=== PATIENT | female | born 1970 | race Caucasian/White ===

== ENCOUNTER 2017-09-05 08:13 | Emergency (ER) | payer OTHER ==
[~2017-09-05] VITALS: Ht 165.1 cm; Wt 96.6 kg
--- NOTE | 2017-09-05 08:58 | Diagnostic Imaging Report ---
INDICATION: Right fifth finger injury. FINDINGS: 3 views of the right hand show posterior dislocation of the right fifth finger at the PIP joint. There is no appreciable fracture. IMPRESSION: Posterior dislocation of the right fifth finger at the PIP joint. Dictated by: Dictated on workstation # [id number]
[2017-09-05] MEDS ORDERED: LIDOCAINE 1% INJ 50 ML (XYLOCAINE) VIAL IJ ONE (09:15)
--- NOTE | 2017-09-05 09:33 | ED Upper Extremity ---
General Chief Complaint: Upper Extremity Stated Complaint: R PINKY POSS BROKEN Nursing Triage Note: c/o pain to right 5th finger and limited ROM. 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 Nursing Sepsis Screen: No Definite Risk Source: patient Exam Limitations: no limitations History of Present Illness Time seen by provider: 08:35 Initial Comments Here with report of right fifth finger pain and inability to bend the pinky finger at the IP joint. Apparently was carrying food trays at work and slipped or tripped and fell to the floor. She did hit her right knee and her right elbow as well as her right hand. The elbow are fine and she is walking without difficulty but noted that she was unable to bend her right fifth finger. Deformity noted. No abrasions or lacerations of significance. Onset: just prior to arrival (approximately one hour ago) Severity: moderate Pain/Injury Location: right 5th finger Method of Injury: fell Modifying Factors: Improves With Immobilization, Worse With Movement Allergies and Home Medications Allergies Coded Allergies: No Known Drug Allergies (Unverified , 09/05/17) Constitutional: no symptoms reported Respiratory: no symptoms reported Cardiovascular: no symptoms reported Musculoskeletal: joint pain, joint swelling Skin: no symptoms reported Psychiatric/Neurological: No Symptoms Reported Past Fwdiaph-Tqrxpo-Ketzaj Hx Patient Social History Alcohol Use: Denies Use Recreational Drug Use: No Smoking Status: Current Everyday Smoker Type Used: Cigarettes Recent Foreign Travel: No Contact w/Someone Who Travel: No Recent Infectious Disease Expo: No Surgeries History of Surgeries: Yes (uterine abletion) Surgeries: Section, Tubal Ligation Respiratory History of Respiratory Disorde: No Cardiovascular History of Cardiac Disorders: No Neurological History of Neurological Disord: No Genitourinary History of Genitourinary Disor: No Gastrointestinal History of Gastrointestinal Di: No Musculoskeletal History of Musculoskeletal Dis: No Endocrine History of Endocrine Disorders: No HEENT History of HEENT Disorders: No Cancer History of Cancer: No Psychosocial History of Psychiatric Problem: No Integumentary History of Skin or Integumenta: No Blood Transfusions History of Blood Disorders: No Reviewed Nursing Assessment Reviewed/Agree w Nursing PMH: Yes Family Medical History Significant Family History: No Pertinent Family Hx Physical Exam Vital Signs Vital Sign - Last 12Hours 09/05/17 08:28 Temp 97.5 Pulse 80 Resp 16 B/P (MAP) 146/98 (114) Capillary Refill : Less Than 3 Seconds General Appearance: WD/WN, no apparent distress Neck: full range of motion, supple Cardiovascular: regular rate, rhythm, no murmur Respiratory: lungs clear, normal breath sounds Hand: Right, deformity (right fifth finger IP joint obvious deformity with distal segment dorsally. Appears to be dislocation. Unable to bend at the IP joint. Distal sensation and circulation are intact.), limited ROM, stiffness, swelling Neurologic/Psychiatric: alert, oriented x 3 Skin: normal color, warm/dry Splinting and Joint Reduction : Pre-Proc Neuro Vasc Exam: normal Post-Proc Neuro Vasc Exam: normal Progress Right fifth finger IP joint Reduction Attempts: 1 post joint reduction film: joint reduced Progress Full range of motion after without return of dislocation. Splint placed by nursing. Tolerated procedure well with no complications. Procedure done after digital block with 1 percent lidocaine. Progress/Results/Core Measures Results/Orders My Orders Orders - JOHN BRIDGES MD Hand, Right, 3 Views (09/05/17 08:22) Lidocaine 1% (Xylocaine 1%) (09/05/17 09:15) Vital Signs/I&O Vital Sign - Last 12Hours 09/05/17 08:28 Temp 97.5 Pulse 80 Resp 16 B/P (MAP) 146/98 (114) Blood Pressure Mean: 114 Progress Note : Progress Note Seen and evaluated. X-ray right hand. Dislocation noted. Digital block of right finger with 1 percent lidocaine 4 mL total. Joint reduced without difficulty. Splint placed by nursing. Discharged home with return precautions. Patient verbalize understanding instructions and agreement with plan. Diagnostic Imaging Diagonstic Imaging: Xray Plain Films/CT/US/NM/MRI: hand Comments VIA [facility], [facility] [place], [place] NAME: MICHAEL GU [facility] REC#: [id number] PT STATUS: REG ER : 1970 PHYSICIAN: JOHN BRIDGES MD ADMIT DATE: 09/05/17/ER Draft Date of Exam:09/05/17 HAND, RIGHT, 3 VIEWS INDICATION: Right fifth finger injury. FINDINGS: 3 views of the right hand show posterior dislocation of the right fifth finger at the PIP joint. There is no appreciable fracture. IMPRESSION: Posterior dislocation of the right fifth finger at the PIP joint. Dictated on workstation # [id number] Dict: 09/05/17 0853 Trans: 09/05/17 0858 [id number] Interpreted by: JOHN HUYNH MD Electronically signed by: Departure Impression Impression: Primary Impression: Dislocation of finger, interphalangeal joint, right, closed Qualified Codes: S63.279A - Dislocation of unspecified interphalangeal joint of unspecified finger, initial encounter Disposition: HOME, SELF-CARE Condition: Improved Departure-Patient Inst. Decision time for Depature: 09:44 Referrals: NO,LOCAL PHYSICIAN (PCP/Family) Primary Care Physician Patient Instructions: Finger Dislocation (DC) Add. Discharge Instructions: All discharge instructions reviewed with patient and/or family. Voiced understanding. Use splint for the next one to 2 weeks and then as needed. Follow-up with occupational health today for recheck and further evaluation. Follow-up with orthopedist for recheck and further evaluation. Return for worse pain, swelling , weakness, breathing problems or other concerns as needed. You may use ibuprofen and/or Tylenol as needed. Pain. Use ice packs to affected area 20 minutes per hour as needed JOHN BRIDGES MD Sep 05, 2017 09:33
[2017-09-05 09:53] VITALS: BP 140/92
== END 2017-09-05 09:53 | disposition home or self-care (01) ==
LOC: EDUNIT# 08:13 → ER 08:16
DX: S63.286A Dislocation of proximal interphalangeal joint of right little finger, initial encounter (principal); F17.210 Nicotine dependence, cigarettes, uncomplicated; Z98.51 Tubal ligation status; Z87.59 Personal history of other complications of pregnancy, childbirth and the puerperium; W01.198A Fall on same level from slipping, tripping and stumbling with subsequent striking against other object, initial encounter
CPT/HCPCS: 29130; 64450; 73130

== ENCOUNTER 2017-09-12 15:10 | Outpatient (RCR) | payer OTHER | END 2017-09-12 17:08 | disposition home or self-care (01) | PROVIDERS: ATTEND Nurse Practitioner Family | DX: S63.286D Dislocation of proximal interphalangeal joint of right little finger, subsequent encounter (principal); W01.198D Fall on same level from slipping, tripping and stumbling with subsequent striking against other object, subsequent encounter; Y92.149 Unspecified place in prison as the place of occurrence of the external cause; Y99.0 Civilian activity done for income or pay ==

== ENCOUNTER → 2017-09-12 | Outpatient (REF) ==
--- NOTE | 2017-09-12 15:17 | Diagnostic Imaging Report ---
INDICATION: Postreduction fifth finger. TIME OF EXAM: 3:20 PM COMPARISON is made with prior exam from 09/05/2012. FINDINGS: There has been interval reduction of the dislocation at the PIP joint of the fifth finger. Alignment appears to be anatomic. There is a small calcific density noted along the volar aspect of the PIP joint, perhaps a small fracture fragment. No other abnormalities are seen. IMPRESSION: Interval reduction of the fifth finger PIP joint dislocation, now with satisfactory alignment. There does appear to be a small fracture present, as described. Dictated by: Dictated on workstation # [id number]
== END | disposition home or self-care (01) ==
LOC: OCC 14:47
PROVIDERS: ATTEND Nurse Practitioner Family
CPT/HCPCS: 73140

== ENCOUNTER 2017-12-05 14:27 | Outpatient (RCR) | payer OTHER | END 2017-12-20 10:39 | disposition home or self-care (01) | PROVIDERS: ATTEND Orthopaedic Surgery Hand Surgery | DX: S63.436A Traumatic rupture of volar plate of right little finger at metacarpophalangeal and interphalangeal joint, initial encounter (principal); W18.09XA Striking against other object with subsequent fall, initial encounter ==

== ENCOUNTER 2022-04-12 09:13 | Emergency (ER) | payer SELFPAY ==
[~2022-04-12] VITALS: Ht 162.4 cm; Wt 106.5 kg
--- NOTE | 2022-04-12 09:54 | ED General ---
General Chief Complaint: Abdominal/GI Problems Stated Complaint: DIZZY/VOMITING Nursing Triage Note: PT AMB TO RM 9 WITH DAUGHTER. PT STATED THAT SHE BECAME DIZZY YESTERDAY AND STARTED VOMITING TODAY. Source of Information: Patient Exam Limitations: No Limitations History of Present Illness Date Seen by Provider: Apr 12, 2022 Time Seen by Provider: 09:35 Initial Comments 51-year-old female presents for dizziness. Symptoms started yesterday morning at about 3:00 and are not going away. Symptoms do seem to be worse when she moves her head to the right side or when she goes from lying to sitting or sitting to standing. This is described as a feeling of the room spinning and is associated with nausea and several episodes of vomiting when she has her worst episodes of dizziness. She has never had similar symptoms previous. No recent URI or other viral type symptoms, illness. No headaches or changes in her vision, blurred or double vision. No upper or lower extremity weakness numbness or tingling. Allergies and Home Medications Allergies Coded Allergies: No Known Drug Allergies (Unverified , 09/05/17) Patient Home Medication List Home Medication List Reviewed: Yes Diazepam (Valium) 5 Mg Tablet, 5 MG PO TID PRN for DIZZINESS Prescribed by: CODIE SINGH MD on 04/12/22 1056 Ondansetron (Ondansetron Odt) 4 Mg Tab.rapdis, 4 MG PO Q6H PRN for NAUSEA/VOMITING-1ST LINE Prescribed by: CODIE SINGH MD on 04/12/22 1055 Review of Systems Review of Systems Constitutional: no symptoms reported EENTM: no symptoms reported Respiratory: no symptoms reported Cardiovascular: no symptoms reported Gastrointestinal: nausea, vomiting Genitourinary: no symptoms reported Musculoskeletal: no symptoms reported Skin: no symptoms reported Psychiatric/Neurological: Other (dizzy) Hematologic/Lymphatic: No Symptoms Reported Immunological/Allergic: no symptoms reported Past Gpsibof-Ckdsjt-Klhtab Hx Patient Social History Tobacco Use?: Yes Tobacco type used: Cigarettes Substance use?: No Alcohol Use?: No Pt feels they are or have been: No Immunizations Up To Date Influenza Vaccine Up-to-Date: Yes; Up-to-Date Past Medical History Surgeries: Yes (uterine abletion) Section, Tubal Ligation Respiratory: No Cardiac: No Neurological: No Genitourinary: No Gastrointestinal: No Musculoskeletal: No Endocrine: No HEENT: No Cancer: No Psychosocial: No Integumentary: No Blood Disorders: No Family Medical History Reviewed Nursing Family Hx No Pertinent Family Hx Physical Exam Vital Signs Vital Signs - First Documented 04/12/22 09:31 Temp 36.0 Pulse 75 Resp 14 B/P (MAP) 169/105 (126) Pulse Ox 94 O2 Delivery Room Air Capillary Refill : Less Than 3 Seconds Height, Weight, BMI Height: 5'5.00" Weight: 213lbs. oz. 96.027110td; 40.00 BMI Method:Stated General Appearance: No Apparent Distress, WD/WN HEENT: PERRL/EOMI, TMs Normal, Normal ENT Inspection, Pharynx Normal, Moist Mucous Membranes, Other (Fatigable nystagmus to the right side) Neck: Normal Inspection, Non Tender, Supple Respiratory: Chest Non Tender, Lungs Clear, Normal Breath Sounds, No Accessory Muscle Use, No Respiratory Distress Cardiovascular: Regular Rate, Rhythm, No Edema, No Murmur, Normal Peripheral Pulses Gastrointestinal: Normal Bowel Sounds, No Organomegaly, Non Tender, Soft Extremity: Normal Capillary Refill, Normal Inspection, Normal Range of Motion, Non Tender, No Calf Tenderness Neurologic/Psychiatric: Alert, Oriented x3, No Motor/Sensory Deficits, Normal 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, 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 Norm as Tested Skin: Normal Color, Warm/Dry Progress/Results/Core Measures Suspected Sepsis SIRS Temperature: Pulse: 75 Respiratory Rate: 14 Laboratory Tests 04/12/22 10:10: White Blood Count 9.2 Blood Pressure 169 /105 Mean: 126 Laboratory Tests 04/12/22 10:10: Creatinine 0.80, Platelet Count 322 Results/Orders Lab Results Laboratory Tests Test 04/12/22 10:10 Range/Units White Blood Count 9.2 4.3-11.0 10^3/uL Red Blood Count 5.02 3.80-5.11 10^6/uL Hemoglobin 15.2 11.5-16.0 g/dL Hematocrit 43 35-52 % Mean Corpuscular Volume 86 80-99 fL Mean Corpuscular Hemoglobin 30 25-34 pg Mean Corpuscular Hemoglobin Concent 35 32-36 g/dL Red Cell Distribution Width 11.7 10.0-14.5 % Platelet Count 322 130-400 10^3/uL Mean Platelet Volume 10.0 9.0-12.2 fL Immature Granulocyte % (Auto) 0 % Neutrophils (%) (Auto) 74 42-75 % Lymphocytes (%) (Auto) 17 12-44 % Monocytes (%) (Auto) 7 0-12 % Eosinophils (%) (Auto) 1 0-10 % Basophils (%) (Auto) 1 0-10 % Neutrophils # (Auto) 6.8 1.8-7.8 10^3/uL Lymphocytes # (Auto) 1.6 1.0-4.0 10^3/uL Monocytes # (Auto) 0.7 0.0-1.0 10^3/uL Eosinophils # (Auto) 0.1 0.0-0.3 10^3/uL Basophils # (Auto) 0.1 0.0-0.1 10^3/uL Immature Granulocyte # (Auto) 0.0 0.0-0.1 10^3/uL Sodium Level 139 135-145 MMOL/L Potassium Level 3.9 3.6-5.0 MMOL/L Chloride Level 102 98-107 MMOL/L Carbon Dioxide Level 26 21-32 MMOL/L Anion Gap 11 5-14 MMOL/L Blood Urea Nitrogen 16 7-18 MG/DL Creatinine 0.80 0.60-1.30 MG/DL Estimat Glomerular Filtration Rate 88 BUN/Creatinine Ratio 20 Glucose Level 119 H 70-105 MG/DL Calcium Level 9.2 8.5-10.1 MG/DL My Orders Orders - CODIE SINGH DO Cbc With Automated Diff (04/12/22 09:51) Basic Metabolic Panel (04/12/22 09:51) Ekg Tracing (04/12/22 09:51) Ondansetron Oral Dissolve Tab (Zofran (04/12/22 10:00) Diazepam Tablet (Valium Tablet) (04/12/22 10:00) Ct Head Wo (04/12/22 09:54) Medications Given in ED Current Medications Medications Dose Ordered Sig/Jennie Route Start Time Stop Time Status Last Admin Dose Admin Diazepam 5 mg ONCE ONCE PO 04/12/22 10:00 04/12/22 10:01 DC 04/12/22 10:04 5 MG Ondansetron HCl 4 mg ONCE ONCE PO 04/12/22 10:00 04/12/22 10:01 DC 04/12/22 10:04 4 MG Vital Signs/I&O 04/12/22 09:31 Temp 36.0 Pulse 75 Resp 14 B/P (MAP) 169/105 (126) Pulse Ox 94 O2 Delivery Room Air Capillary Refill : Less Than 3 Seconds Blood Pressure Mean: 126 ECG Initial ECG Impression Date: Apr 12, 2022 Initial ECG Impression Time: 10:35 Comment Sinus rhythm with a rate of 64 bpm. Normal intervals. Normal axis. No ST or T wave abnormalities. No ectopy. Diagnostic Imaging Diagonstic Imaging: CT Plain Films/CT/US/NM/MRI: head Comments Negative per radiology read Departure Communication (Admissions) The patient remained hemodynamically stable throughout her hospital course. She has fatigable nystagmus to the right with right-sided vertiginous symptoms consistent with peripheral vertigo. CT scan is negative for any acute infarction. I did discuss with her the possibility, though I think it unlikely at this time, that she could have had a cerebellar stroke. Given her current symptoms we will go ahead and treat her symptomatically with Valium and Zofran. Her symptoms have improved greatly with Valium and Zofran. She feels comfortable discharge home at this time. Russians were sought and answered. Impression Primary Impression: Peripheral vertigo Qualified Codes: H81.391 - Other peripheral vertigo, right ear Disposition: HOME, SELF-CARE Condition: Stable Departure-Patient Inst. Referrals: ANA KO MD NO,LOCAL PHYSICIAN (PCP) Primary Care Physician Patient Instructions: Vertigo ED Add. Discharge Instructions: You were seen in the emergency department today for dizziness. I believe this is peripheral vertigo. I recommend you take the provided medications as needed. The value may make you drowsy so do not drive or make important decisions while taking it. If it is making you too drowsy you may cut the tablets in half. Zofran will dissolve under your tongue and should take it as needed for nausea. Increase your fluids at home, rest as needed. This will likely improve over the next couple of days however it could last up to a month or so. If it persists I recommend you follow-up with your primary doctor for further evaluation and treatment recommendations. Return to the emergency department for any severe concerns, blurred or double vision, weakness of your upper or lower extremities or if your symptoms change in any way concerning to you. All discharge instructions reviewed with patient and/or family. Voiced understanding. Scripts Diazepam (Valium) 5 Mg Tablet 5 MG PO TID PRN for DIZZINESS for 7 Days, #21 TAB 0 Refills Prov: CODIE SINGH DO 04/12/22 Ondansetron (Ondansetron Odt) 4 Mg Tab.rapdis 4 MG PO Q6H PRN for NAUSEA/VOMITING-1ST LINE for 7 Days, #28 TAB 0 Refills Prov: CODIE SINGH DO 04/12/22 CODIE SINGH DO Apr 12, 2022 09:54
[2022-04-12] MEDS ORDERED: ONDANSETRON 4 MG (ZOFRAN) ORAL DISSOLVE TAB PO ONE (10:00)
[2022-04-12] MEDS ORDERED: DIAZEPAM 5 MG (VALIUM) TABLET PO ONE (10:00)
[2022-04-12 10:16] LABS: BASOPHILS # (AUTO) 0.1 10^3/uL (0.0-0.1); BASOPHILS % (AUTO) 1 % (0-10); EOSINOPHILS # (AUTO) 0.1 10^3/uL (0.0-0.3); EOSINOPHILS % (AUTO) 1 % (0-10); HEMATOCRIT 43 % (35-52); HEMOGLOBIN 15.2 g/dL (11.5-16.0); LYMPHOCYTES # (AUTO) 1.6 10^3/uL (1.0-4.0); LYMPHOCYTES % (AUTO) 17 % (12-44); MEAN CORPUSCULAR HEMOGLOBIN 30 pg (25-34); MEAN CORPUSCULAR HGB CONC 35 g/dL (32-36); MEAN CORPUSCULAR VOLUME 86 fL (80-99); MONOCYTES # (AUTO) 0.7 10^3/uL (0.0-1.0); MONOCYTES % (AUTO) 7 % (0-12); NEUTROPHILS # (AUTO) 6.8 10^3/uL (1.8-7.8); NEUTROPHILS % (AUTO) 74 % (42-75); PLATELET COUNT 322 10^3/uL (130-400); WHITE BLOOD COUNT 9.2 10^3/uL (4.3-11.0)
[2022-04-12 10:29] LABS: POTASSIUM 3.9 MMOL/L (3.6-5.0)
[2022-04-12 10:30] LABS: CALCIUM 9.2 MG/DL (8.5-10.1)
--- NOTE | 2022-04-12 10:32 | Diagnostic Imaging Report ---
PROCEDURE: CT head without contrast. TECHNIQUE: Multiple contiguous axial images were obtained through the brain without the use of intravenous contrast. Auto Exposure Controls were utilized during the CT exam to meet ALARA standards for radiation dose reduction. INDICATION: Dizziness and vomiting. No prior studies are available for comparison. The ventricles and sulci are within normal limits. No sulcal effacement or midline shift is identified. No acute intra-axial or extra-axial hemorrhage is detected. Cisterns are patent. The visualized paranasal sinuses are clear. IMPRESSION: No acute intracranial process is detected. Dictated by: Dictated on workstation # [id number]
[2022-04-12 10:35] LABS: CREATININE SERUM 0.8 MG/DL (0.60-1.30)
[2022-04-12] MEDS ORDERED: ONDA4TAB11 PO (10:55)
[2022-04-12] MEDS ORDERED: DIAZ5TAB PO (10:55)
[2022-04-12 11:13] VITALS: BP 150/91
== END 2022-04-12 11:13 | disposition home or self-care (01) ==
LOC: EDUNIT# 09:13 → ER 09:15
DX: H81.391 Other peripheral vertigo, right ear (principal); F17.210 Nicotine dependence, cigarettes, uncomplicated
CPT/HCPCS: 36415; 70450; 80048; 85025; 93005